=== PATIENT | female | born 1940 | race Caucasian/White ===

== ENCOUNTER 2017-10-24 06:37 | Day surgery (SDC) | payer MEDICARE, OTHER ==
[~2017-10-24] VITALS: Ht 165.1 cm; Wt 58.8 kg
[~2017-10-24 06:37] MED LIST: ARICEPT10 MG PO; DIOVAN 80MG80 MG PO; FOSAMAX 70MG TA70 MG PO; LOPRESSOR100 MG PO; MAALOX ADVANCE148 ML PO; MASON NATURAL2000 IU PO; MEVACOR 20M20 MG/TAB PO; MULTI VITAMINS1 TAB PO; NAMENDA5 MG PO; NORVASC 10MG10 MG PO; TYLENOL 500MG500 MG PO; TYLENOL PM EXTR1 TA1 PO; ULTRAM 50MG TAB50 MG PO
[2017-10-24 07:26] VITALS: BP 127/96; PULSE 76; TEMP 97.4
[2017-10-24 09:50] VITALS: BP 110/90; PULSE 80; TEMP 97.2
[2017-10-24 10:05] VITALS: BP 90/69; PULSE 77
[2017-10-24] MEDS ORDERED: IBU800 M1 PO (10:11)
[2017-10-24] MEDS ORDERED: NORCO 325 MG-51 TAB PO (10:11)
[2017-10-24] MEDS ORDERED: PERIDEX (CHLOR480 ML MM (10:11)
[2017-10-24 10:20] VITALS: BP 107/66; PULSE 76
[2017-10-24 10:35] VITALS: BP 121/96; PULSE 78
[2017-10-24 10:57] VITALS: BP 107/84; PULSE 82; TEMP 97.4
== END 2017-10-24 10:52 | disposition home or self-care (01) ==
LOC: SDCO 06:37
DX: K02.9 Dental caries, unspecified (principal); F03.90 Unspecified dementia, unspecified severity, without behavioral disturbance, psychotic disturbance, mood disturbance, and anxiety; I10 Essential (primary) hypertension; Z85.528 Personal history of other malignant neoplasm of kidney; I25.2 Old myocardial infarction; K21.9 Gastro-esophageal reflux disease without esophagitis; G89.29 Other chronic pain; M54.5 Low back pain; M81.0 Age-related osteoporosis without current pathological fracture; M19.90 Unspecified osteoarthritis, unspecified site
CPT/HCPCS: J0330; J1100; J2405; J2550; J2704; J3010; J7120